=== PATIENT | male | born 1965 | race American Indian/Alaskan Native ===

== ENCOUNTER 2018-11-18 09:28 | Emergency (ER) | payer OTHER ==
[2018-11-18 10:16] LABS: Basophils % (Auto) 1.3 % (0.0-1.8); Eosinophils # (Auto) 0.1 K/mm3 (0.0-0.4); Eosinophils % (Auto) 2.6 % (0.0-4.3); Hemoglobin 13.7 gm/dl (11.8-15.2); Lymphocytes # (Auto) 1.5 K/mm3 (1.2-5.4); Lymphocytes % (Auto) 41.5 % (13.4-35.0); Mean Corpuscular HGB Conc 34 % (32-34); Mean Corpuscular Volume 90 fl (84-94); Monocytes # (Auto) 0.3 K/mm3 (0.0-0.8); Monocytes % (Auto) 8.6 % (0.0-7.3); Platelet Count 253 K/mm3 (140-440); Red Blood Count 4.59 M/mm3 (3.65-5.03); Red Cell Distribution Width 14.7 % (13.2-15.2)
[2018-11-18 10:20] LABS: INR 1.02 (0.87-1.13)
[2018-11-18 10:21] LABS: Partial Thromboplastin Time 32.4 Sec. (24.2-36.6)
[2018-11-18 10:22] LABS: Thrombin Time 17.7 Sec. (15.1-19.6)
--- NOTE | 2018-11-18 10:27 | Cat Scan Report ---
CT HEAD WITHOUT CONTRAST INDICATION / CLINICAL INFORMATION: neuro deficits <6hrs or sx present upon awakening. Code stroke. TECHNIQUE: Axial imaging performed from the skull apex through the skull base without the use of cont rast. Sagittal and coronal reformatted images. All CT scans at this location are performed using CT dose reduction for [employer] by means of automated exposure control. COMPARISON: None available. FINDINGS: CEREBRAL PARENCHYMA: No significant abnormality. No acute territorial infarct. HEMORRHAGE: None. EXTRA-AXIAL SPACES: Normal in size and morphology for the patient's age. VENTRICULAR SYSTEM: Normal in size and morphology for the patient's age. MIDLINE SHIFT OR HERNIATION: None. CEREBELLUM / BRAINSTEM: No significant abnormality. CALVARIUM: No significant abnormality. ORBITS: Normal as visualized. PARANASAL SINUSES / MASTOID AIR CELLS: Normal as visualized. SOFT TISSUES of HEAD: No significant abnormality. ADDITIONAL FINDINGS: None. IMPRESSION: No acute intracranial abnormality. These findings were discussed with Dr. Griffin in the emergency department at 1017 hours Eastern standar d time. Signer Name: Hemant Rod Jr, MD Signed: 11/18/2018 10:23 AM Workstation Name: [id number]
[2018-11-18 10:30] LABS: BUN/Creatinine Ratio 11; Blood Urea Nitrogen 14 mg/dL (9-20); Calcium 9.7 mg/dL (8.4-10.2); Hemolysis Index 5
[2018-11-18] MEDS ORDERED: NORMODYNE IV ONE (10:38)
--- NOTE | 2018-11-18 10:39 | Emergency Department Report ---
ED Neuro Deficit HPI - General Chief Complaint: Neuro Symptoms/Deficit Stated Complaint: HBP/HEADACHE/LT SHOUDLER NUMB Time Seen by Provider: 11/18/18 10:22 Source: patient Mode of arrival: Ambulatory Limitations: No Limitations - History of Present Illness Initial Comments: [facility] Impression: No TPA osw, was lat normal the night before. The patient is at 53 year old with left sided weaknss, Concerned about his tortuosity of the basilar that I see on CT with calcifications. Would like more info, CTAhead/neck, to make sure not stenosed or over calcified. Comments: @paged 9:11 am @paged 9:13 am online Recommendations: <220/110 Start antiplatelet if no obvious contraindication Stroke protocol admission/ orderset suggested with placement on stroke floor tele monitoring Bedside swallow evaluation HOB less than 30 degrees IV Fluid hydration with NS Euglycemia avoid hyperthermia, PRN acetaminophen dvt ppx Consider inpatient neurology consultation Discussed with ED MD Please call with questions --------- CC History of Present Illness The patient was having left sided numbness on wakeup with hx of htn, hld. Diagnostic: CT head is negative. Exam: Patient is in no apparent distress. Patient appears as stated age. No obvious acute respiratory or cardiac distress. Patient is well groomed and well-nourished. NIHSS score:4 1A: Level of Consciousness - Requires repeated stimulation to arouse 0 1B: Ask Month and Age - 0 Questions Right 0 1C: 'Blink Eyes' & 'Squeeze Hands' - Performs 0 Tasks 0 2: Test Horizontal Extraocular Movements - Partial Gaze Palsy: Corrects with Oculocephalic Reflex 0 3: Test Visual [place] - No Visual Loss 0 4: Test Facial Palsy - Normal symmetry 0 5A: Test Left Arm Motor Drift - Some Effort Against Mason 2 5B: Test Right Arm Motor Drift - Some Effort Against Gravity0 6A: Test Left Leg Motor Drift - Some Effort Against Mason 0 6B: Test Right Leg Motor Drift - Some Effort Against Mason 0 7: Test Limb Ataxia - Ataxia in 2 Limbs 0 8: Test Sensation - Complete Loss: Cannot Sense Being Touched At All 2 9: Test Language/Aphasia- Severe Aphasia: Fragmentary Expression, Inference Needed, Cannot Identify Materials 0 10: Test Dysarthria - Mute/Anarthric 0 11: Test Extinction/Inattention - Extinction to bilateral simultaneous stimulation 0 Medical Decision Making: - Extensive number of diagnosis or management options are considered above. - Extensive amount of complex data reviewed. - High risk of complication and/or morbidity or mortality are associated with differential diagnostic considerations above. - There may be Uncertain outcome and increased probability of prolonged functional impairment or high probability of severe prolonged functional impairment associated with some of these differential diagnosis. Medical Data Reviewed: 1.Data reviewed include clinical labs, radiology,Medical Tests; 2.Tests results discussed w/performing or interpreting physician; 3.Obtaining/reviewing old medical records; 4.Obtaining case history from another source; 5.Independent review of image, tracing or specimen - Related Data Allergies/Adverse Reactions: Allergies Allergy/AdvReac Type Severity Reaction Status Date / Time No Known Allergies Allergy Unverified 11/18/18 09:36 ED Review of Systems ROS: Stated complaint: HBP/HEADACHE/LT SHOUDLER NUMB Other details as noted in HPI ED Past Medical Hx - Past Medical History Previous Medical History?: Yes Hx Hypertension: Yes - Surgical History Past Surgical History?: No ED Neuro Physical Exam - General Limitations: No Limitations ED Course Vital Signs 11/18/18 11/18/18 11/18/18 09:55 10:01 10:09 Pulse Rate 74 78 Respiratory 19 16 Rate Blood Pressure 186/121 Blood Pressure 185/120 [Left] O2 Sat by Pulse 99 96 96 Oximetry 11/18/18 10:11 Pulse Rate Respiratory 16 Rate Blood Pressure Blood Pressure [Left] O2 Sat by Pulse Oximetry - Lab Data Result diagrams: 11/18/18 09:44 11/18/18 09:44 Lab Results 11/18/18 11/18/18 11/18/18 Range/Units 09:42 09:44 09:44 WBC 3.7 L (4.5-11.0) K/mm3 RBC 4.59 (3.65-5.03) M/mm3 Hgb 13.7 (11.8-15.2) gm/dl Hct 41.0 (35.5-45.6) % MCV 90 (84-94) fl MCH 30 (28-32) pg MCHC 34 (32-34) % RDW 14.7 (13.2-15.2) % Plt Count 253 (140-440) K/mm3 Lymph % (Auto) 41.5 H (13.4-35.0) % [place] % (Auto) 8.6 H (0.0-7.3) % Eos % (Auto) 2.6 (0.0-4.3) % Baso % (Auto) 1.3 (0.0-1.8) % Lymph # 1.5 (1.2-5.4) K/mm3 [place]ry # 0.3 (0.0-0.8) K/mm3 Eos # 0.1 (0.0-0.4) K/mm3 Baso # 0.0 (0.0-0.1) K/mm3 Seg Neutrophils % 46.0 (40.0-70.0) % Seg Neutrophils # 1.7 L (1.8-7.7) K/mm3 PT 13.1 (12.2-14.9) Sec. INR 1.02 (0.87-1.13) APTT 32.4 (24.2-36.6) Sec. Thrombin Time 17.7 (15.1-19.6) Sec. Sodium (137-145) mmol/L Potassium (3.6-5.0) mmol/L Chloride (98-107) mmol/L Carbon Dioxide (22-30) mmol/L Anion Gap mmol/L BUN (9-20) mg/dL Creatinine (0.8-1.5) mg/dL Estimated GFR ml/min BUN/Creatinine Ratio % Glucose (75-100) mg/dL POC Glucose 120 H (70-105) Calcium (8.4-10.2) mg/dL 11/18/18 Range/Units 09:44 WBC (4.5-11.0) K/mm3 RBC (3.65-5.03) M/mm3 Hgb (11.8-15.2) gm/dl Hct (35.5-45.6) % MCV (84-94) fl MCH (28-32) pg MCHC (32-34) % RDW (13.2-15.2) % Plt Count (140-440) K/mm3 Lymph % (Auto) (13.4-35.0) % [place] % (Auto) (0.0-7.3) % Eos % (Auto) (0.0-4.3) % Baso % (Auto) (0.0-1.8) % Lymph # (1.2-5.4) K/mm3 Hendry # (0.0-0.8) K/mm3 Eos # (0.0-0.4) K/mm3 Baso # (0.0-0.1) K/mm3 Seg Neutrophils % (40.0-70.0) % Seg Neutrophils # (1.8-7.7) K/mm3 PT (12.2-14.9) Sec. INR (0.87-1.13) APTT (24.2-36.6) Sec. Thrombin Time (15.1-19.6) Sec. Sodium 142 (137-145) mmol/L Potassium 4.8 (3.6-5.0) mmol/L Chloride 104.1 (98-107) mmol/L Carbon Dioxide 25 (22-30) mmol/L Anion Gap 18 mmol/L BUN 14 (9-20) mg/dL Creatinine 1.3 (0.8-1.5) mg/dL Estimated GFR 58 ml/min BUN/Creatinine Ratio 11 % Glucose 99 (75-100) mg/dL POC Glucose (70-105) Calcium 9.7 (8.4-10.2) mg/dL Critical care attestation.: If time is entered above; I have spent that time in minutes in the direct care of this critically ill patient, excluding procedure time. ED Disposition Condition: Stable
--- NOTE | 2018-11-18 11:02 | Emergency Department Report ---
ED Neuro Deficit HPI - General Chief Complaint: Neuro Symptoms/Deficit Stated Complaint: HBP/HEADACHE/LT SHOUDLER NUMB Time Seen by Provider: 11/18/18 10:22 Source: patient Mode of arrival: Ambulatory Limitations: No Limitations - History of Present Illness Initial Comments: 53-year-old male presents to ED with complaint of left arm numbness. The patie nt reports he awoke with the symptoms at 4 AM this morning when he was getting ready for work. Reports he was asymptomatic when he went to bed last night. Patient reports slight weakness of the left arm. Denies any symptoms in his lower extremities. Patient currently reports a mild headache, for which she states improved after taking BC powder. Patient reports that he has been having daily headaches. Blood pressure is currently elevated. Patient states he has been told in the past about his elevated blood pressure, but states he has not formally diagnosed or placed on any medications for his hypertension. Patient denies having a PCP. Patient reports tobacco use, denies drug or alcohol use. -: This morning Location: left arm History of same: No Severity: mild Quality: numb, tingling Improves With: none Worsens With: none On Anticoagulants: No Context: other (awoke with symptoms) Associated Symptoms: headaches. denies: chest pain, fever/chills, nausea/vomiting, shortness of breath - Related Data Home Medications: Home Medications Medication Instructions Recorded Confirmed Last Taken No Known Home Medications [No 11/18/18 11/18/18 Unknown Reported Home Medications] Allergies/Adverse Reactions: Allergies Allergy/AdvReac Type Severity Reaction Status Date / Time No Known Allergies Allergy Unverified 11/18/18 09:36 ED Review of Systems ROS: Stated complaint: HBP/HEADACHE/LT SHOUDLER NUMB Other details as noted in HPI Comment: All other systems reviewed and negative Constitutional: denies: chills, fever Respiratory: denies: shortness of breath Cardiovascular: denies: chest pain Gastrointestinal: denies: nausea, vomiting Neurological: headache, weakness, numbness, paresthesias ED Past Medical Hx - Past Medical History Previous Medical History?: Yes Hx Hypertension: Yes - Surgical History Past Surgical History?: No - Medications Home Medications: Home Medications Medication Instructions Recorded Confirmed Last Taken Type No Known Home Medications [No 11/18/18 11/18/18 Unknown History Reported Home Medications] ED Neuro Physical Exam - General Limitations: No Limitations General appearance: alert, in no apparent distress Suspected Stroke: Yes - Head Head exam: Present: atraumatic, normocephalic - Eye Eye exam: Present: normal appearance, PERRL, EOMI - ENT ENT exam: Present: mucous membranes moist - Neck Neck exam: Present: normal inspection - Respiratory Respiratory exam: Present: normal lung sounds bilaterally. Absent: respiratory distress - Cardiovascular Cardiovascular Exam: Present: regular rate, normal rhythm - GI/Abdominal GI/Abdominal exam: Present: soft. Absent: distended, tenderness - Extremities Exam Extremities exam: Present: normal inspection - Neurological Exam Neurological exam: Present: alert, oriented X3 - NIHSS Assessment Interval: Baseline 1a. Level of Consciousness: alert/keenly responsive 1b. LOC Questions: answers both correctly 1c. LOC Commands: performs tasks correctly 2. Best Gaze: normal 3. Visual: no visual loss 4. Facial Palsy: normal symmetrical movement 5b. Motor Arm Right: no drift 5a. Motor Arm Left: no drift 6a. Motor Leg Left: no drift 6b. Motor Leg Right: no drift 7. Limb Ataxia: absent 8. Sensory: mild/moderate sensory loss 9. Best Language: no aphasia 10. Dysarthria: normal 11. Extinction/Inattention: no abnormality Total Score: 1 Stroke Severity: Minor Stroke - Psychiatric Psychiatric exam: Present: normal affect, normal mood - Skin Skin exam: Present: warm, dry, intact, normal color ED Course Vital Signs 11/18/18 11/18/18 11/18/18 09:55 10:01 10:09 Temperature 98.5 F Pulse Rate 74 78 Respiratory 19 16 Rate Blood Pressure 186/121 Blood Pressure 185/120 [Left] O2 Sat by Pulse 99 96 96 Oximetry 11/18/18 11/18/18 11/18/18 10:11 10:15 10:31 Temperature Pulse Rate 80 85 Respiratory 16 17 Rate Blood Pressure 188/125 199/132 Blood Pressure [Left] O2 Sat by Pulse 97 Oximetry 11/18/18 11/18/18 11/18/18 10:54 10:55 11:00 Temperature Pulse Rate 72 72 73 Respiratory 13 12 Rate Blood Pressure 178/105 178/105 171/107 Blood Pressure [Left] O2 Sat by Pulse 97 95 Oximetry 11/18/18 11/18/18 11/18/18 11:15 11:30 11:45 Temperature Pulse Rate 72 70 68 Respiratory 11 L 20 Rate Blood Pressure 181/107 158/110 168/105 Blood Pressure [Left] O2 Sat by Pulse 95 96 96 Oximetry 11/18/18 11/18/18 11/18/18 12:00 12:15 12:31 Temperature Pulse Rate 70 69 Respiratory 21 19 Rate Blood Pressure 168/105 180/111 169/105 Blood Pressure [Left] O2 Sat by Pulse 99 94 96 Oximetry - Consultations Consultation #1: 11/18/18 12:12 [place] pt. Spoke w/ Dr Cristela Alejo, on-call. States will transfer to [facility]. Dr Chrystal Lima accepting physician. - Lab Data Result diagrams: 11/18/18 09:44 11/18/18 09:44 Lab Results 11/18/18 11/18/18 11/18/18 Range/Units 09:42 09:44 09:44 WBC 3.7 L (4.5-11.0) K/mm3 RBC 4.59 (3.65-5.03) M/mm3 Hgb 13.7 (11.8-15.2) gm/dl Hct 41.0 (35.5-45.6) % MCV 90 (84-94) fl MCH 30 (28-32) pg MCHC 34 (32-34) % RDW 14.7 (13.2-15.2) % Plt Count 253 (140-440) K/mm3 Lymph % (Auto) 41.5 H (13.4-35.0) % [place] % (Auto) 8.6 H (0.0-7.3) % Eos % (Auto) 2.6 (0.0-4.3) % Baso % (Auto) 1.3 (0.0-1.8) % Lymph # 1.5 (1.2-5.4) K/mm3 [place] # 0.3 (0.0-0.8) K/mm3 Eos # 0.1 (0.0-0.4) K/mm3 Baso # 0.0 (0.0-0.1) K/mm3 Seg Neutrophils % 46.0 (40.0-70.0) % Seg Neutrophils # 1.7 L (1.8-7.7) K/mm3 PT 13.1 (12.2-14.9) Sec. INR 1.02 (0.87-1.13) APTT 32.4 (24.2-36.6) Sec. Thrombin Time 17.7 (15.1-19.6) Sec. Sodium (137-145) mmol/L Potassium (3.6-5.0) mmol/L Chloride (98-107) mmol/L Carbon Dioxide (22-30) mmol/L Anion Gap mmol/L BUN (9-20) mg/dL Creatinine (0.8-1.5) mg/dL Estimated GFR ml/min BUN/Creatinine Ratio % Glucose (75-100) mg/dL POC Glucose 120 H (70-105) Calcium (8.4-10.2) mg/dL Troponin T (0.00-0.029) ng/mL 11/18/18 Range/Units 09:44 WBC (4.5-11.0) K/mm3 RBC (3.65-5.03) M/mm3 Hgb (11.8-15.2) gm/dl Hct (35.5-45.6) % MCV (84-94) fl MCH (28-32) pg MCHC (32-34) % RDW (13.2-15.2) % Plt Count (140-440) K/mm3 Lymph % (Auto) (13.4-35.0) % [place] % (Auto) (0.0-7.3) % Eos % (Auto) (0.0-4.3) % Baso % (Auto) (0.0-1.8) % Lymph # (1.2-5.4) K/mm3 [place] # (0.0-0.8) K/mm3 Eos # (0.0-0.4) K/mm3 Baso # (0.0-0.1) K/mm3 Seg Neutrophils % (40.0-70.0) % Seg Neutrophils # (1.8-7.7) K/mm3 PT (12.2-14.9) Sec. INR (0.87-1.13) APTT (24.2-36.6) Sec. Thrombin Time (15.1-19.6) Sec. Sodium 142 (137-145) mmol/L Potassium 4.8 (3.6-5.0) mmol/L Chloride 104.1 (98-107) mmol/L Carbon Dioxide 25 (22-30) mmol/L Anion Gap 18 mmol/L BUN 14 (9-20) mg/dL Creatinine 1.3 (0.8-1.5) mg/dL Estimated GFR 58 ml/min BUN/Creatinine Ratio 11 % Glucose 99 (75-100) mg/dL POC Glucose (70-105) Calcium 9.7 (8.4-10.2) mg/dL Troponin T < 0.010 (0.00-0.029) ng/mL - EKG Data -: EKG Interpreted by Me EKG shows normal: sinus rhythm, axis, intervals, QRS complexes Rate: normal Interpretation: nonspecific ST-T wave cynthia - Radiology Data Radiology results: report reviewed, image reviewed - Medical Decision Making 53-year-old male with history of hypertension presents to ED after waking with arm numbness and weakness at 4 AM. Not a tPA candidate because he presented outside the window. Patient currently has no facial droop, no slurred speech. No symptoms present in the lower extremities. Patient currently has a NIH score of 1 for decreased sensation in the left arm. Strength is normal in the left arm, no drugs currently. Patient did receive labetalol 10 mg for blood pressure of 199/132. CT head negative. CTA head and neck also unremarkable. Spoke with Dick Martines-on-call. Patient will be transferred to [facility] Emergency Department because he is a [place] patient. - Differential Diagnosis ischemic CVA, hemorrhagic CVA, ACS - Thrombolytic Inclusion/Exclusion Thrombolytic Exclusion Criteria: Symptom Onset > 3 Hours Critical Care Time: Yes Critical care time in (mins) excluding proc time.: 35 Critical care attestation.: If time is entered above; I have spent that time in minutes in the direct care of this critically ill patient, excluding procedure time. Critical Care Time: 35 min ED Disposition Clinical Impression: Numbness and tingling in left arm, Hypertensive emergency Disposition: DC/TX-70 ANOTHER TYPE HLTHCARE Is pt being admited?: No Condition: Stable Instructions: Hypertension (ED) Referrals: PRIMARY CARE, [Primary Care Provider] - 3-5 Days Time of Disposition: 12:13
--- NOTE | 2018-11-18 11:58 | Cat Scan Report ---
CTA head with intravenous contrast CLINICAL HISTORY: stroke. Neuro deficits less than 6 hours or symptoms present upon awakening. TECHNIQUE: 0.625 mm thick contiguous axial scans were obtained from the skull base to the skull vertex during ra pid bolus administration of intravenous contrast material. Multiplanar reconstructions were produced in the coronal and sagittal planes. In addition 3 plane MIP instructions were produced and reviewed f or this report. The axial source images and reconstructed images were reviewed for this report. All CT scans at this location are performed using CT dose reduction for [employer] by means of automated e xposure control. FINDINGS: The caliber of the intracranial vessels is normal throughout. There is no indication of intracranial stenosis or large vessel occlusion. There is no indication of vasculitis. There is no evidence of aneurysm or other vascular malformation. IMPRESSION: No abnormalities are identified on CTA head with intravenous contrast. CONTRAST DOSE REPORT: Omnipaque 350: 100 ml administered intravenously. Signer Name: Kulwant Dempsey MD Signed: 11/18/2018 11:53 AM Workstation Name: [id number]
--- NOTE | 2018-11-18 12:03 | Cat Scan Report ---
CTA neck with intravenous contrast material CLINICAL HISTORY: stroke TECHNIQUE: Following acquisition of a timing bolus 0.625 mm thick contiguous axial scans were obtained from aort ic arch to the skull base during rapid bolus intravenous contrast infusion. In addition to evaluation of axial source images multiplanar reconstructions were produced and reviewed for this report. 3 jacquie ne MIP reconstructions were produced and reviewed for this report. FINDINGS: No abnormalities are seen at the origins of the great vessels. Common carotid arteries, carotid bifurcations and cervical portions of the internal carotid arteries all have a normal appearance. There is no indication of hemodynamically significant stenosis. Normal and symmetrical vertebral arteries are present. There is no indication of stenosis along the c ourse of the vertebral arteries. Both vertebral arteries contribute to the basilar artery origin. The basilar artery has an unremarkable appearance. The degree of stenosis, if any, is determined utilizing NASCET like criteria. In this case there is no indication of hemodynamically significant stenosis. Evaluation of the nonvascular soft tissue structures reveal no abnormality. There is no indication of cervical lymphadenopathy. No abnormalities are seen along the course of the airway. Visualized porti ons of the parotid glands and the submandibular salivary glands have a normal appearance. Thyroid gla nd has a normal appearance. Evaluation of the lung apices reveals no evidence of lung nodule or infil trate. Evaluation of the cervical spine revealed no significant abnormalities. IMPRESSION: 1. No abnormalities are identified on CTA neck. Contrast dose report: Omnipaque 350: 100 ml, administered intravenously All CT examinations performed at this facility utilize modulated dose reduction, iterative reconstruc tion or weight-based dosing, as appropriate, to obtain a radiation dose which is as low as can reason ably be achieved. Signer Name: Kulwant Dempsey MD Signed: 11/18/2018 11:58 AM Workstation Name: [id number]
[2018-11-18] MEDS ORDERED: ASPIRIN PO ONE (12:13)
[2018-11-18 12:39] VITALS: BP 169/105
== END 2018-11-18 13:38 | disposition other institution (70) ==
LOC: ED 09:28
DX: I16.1 Hypertensive emergency (principal); R20.0 Anesthesia of skin; I10 Essential (primary) hypertension
CPT/HCPCS: 36415; 70450; 70496; 70498; 80048; 82962; 84484; 85025; 85610; 85670; 85730; 93005; 93010; 96374; 99291; Q9967